=== PATIENT | male | born 1965 ===

== ENCOUNTER 2016-09-18 07:29 | Emergency (ER) | payer OTHER ==
[2016-09-18 07:35] VITALS: BMI 29.9
--- NOTE | 2016-09-18 08:02 | ED PDOC ---
HPI: Back Time Seen by Provider: 09/18/16 07:33 Chief Complaint (Nursing): Back Pain Chief Complaint (Provider): Back pain History Per: Patient History/Exam Limitations: no limitations Onset/Duration Of Symptoms: Days (1 week) Current Symptoms Are (Timing): Still Present Quality Of Discomfort: "Pain" Severity: Moderate Associated Symptoms: None Exacerbating Factor(s): Movement (sitting to standing position) Additional Complaint(s): The pt is a 51yo male, PMHx of skin cancer with surgery for lesion removal, presents to the ED for evaluation of persistent back pain for the past week. Pt reports pain is worse when he attempts to move from a sitting to standing position. 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 He denies any symptoms. Pt offers no additional medical complaints. Past Medical History Reviewed: Historical Data, Nursing Documentation, Vital Signs Vital Signs: Last Vital Signs Temp 97 F L 09/18/16 07:33 Pulse 86 09/18/16 07:33 Resp BP 141/94 H 09/18/16 07:33 Pulse Ox 97 09/18/16 07:33 - Medical History PMH: Malignancy (skin ca) - Surgical History Surgical History: No Surg Hx - Family History Family History: States: No Known Family Hx - Living Arrangements Living Arrangements: With Family - Social History Current smoker - smoking cessation education provided: No Alcohol: None Drugs: Denies - Home Medications Home Medications: Ambulatory Orders Medication Instructions Recorded Cyclobenzaprine [Cyclobenzaprine 10 mg PO TID PRN #15 tab 09/18/16 HCl] Naproxen [Naprosyn] 500 mg PO BID PRN #15 tablet 09/18/16 - Allergies Allergies/Adverse Reactions: Allergies Allergy/AdvReac Type Severity Reaction Status Date / Time No Known Allergies Allergy Verified 09/18/16 07:45 Review of Systems ROS Statement: Except As Marked, All Systems Reviewed And Found Negative Genitourinary Male: Negative for: Dysuria, Frequency, Incontinence Musculoskeletal: Positive for: Back Pain Physical Exam - Reviewed Nursing Documentation Reviewed: Yes Vital Signs Reviewed: Yes - Physical Exam Appears: Positive for: Well, Non-toxic, No Acute Distress Head Exam: Positive for: ATRAUMATIC, NORMAL INSPECTION, NORMOCEPHALIC Skin: Positive for: Normal Color, Warm Eye Exam: Positive for: Normal appearance Neck: Positive for: Normal, Supple Cardiovascular/Chest: Positive for: Regular Rate, Rhythm Respiratory: Positive for: Normal Breath Sounds. Negative for: Respiratory Distress Back: Positive for: Other (tenderness to left lumbar paraspinal region) Extremity: Positive for: Normal ROM, Other (negative for straight leg test.). Negative for: Deformity, Swelling Neurologic/Psych: Positive for: Alert, Oriented - ECG O2 Sat by Pulse Oximetry: 97 (RA) Pulse Ox Interpretation: Normal Medical Decision Making Medical Decision Making: Time: 0740 Impression: lower back pain Plan: -- CT Lumbar Spine -- Urinalysis -- Toradol 60 mg IM -- Fexeril 10 mg PO -- Reassess Time: 1113 CT AP IMPRESSION: No acute fractures. Mild multilevel chronic appearing Schmorl's node. There is small left parasagittal and central a disc herniation at the L4-L5 level that does result in compressive effects on the ventral surface of the thecal sac centrally and to the left as above. Pt given CT report and stable for d/c home. Scribe Attestation: Documented by Amie Kathleen acting as a scribe for Gale Calderon MD. Provider Attestation: All medical record entries made by the Scribe were at my direction and personally dictated by me. I have reviewed the chart and agree that the record accurately reflects my personal performance of the history, physical exam, medical decision making, and the department course for this patient. I have also personally directed, reviewed, and agree with the discharge instructions and disposition. Disposition - Clinical Impression Clinical Impression: Disc herniation - Disposition Referrals: [facility] [Outside] [facility] [Outside] Disposition: Routine/Home Disposition Time: 11:12 Condition: STABLE Prescriptions: Cyclobenzaprine [Cyclobenzaprine HCl] 10 mg PO TID PRN #15 tab PRN Reason: Pain Naproxen [Naprosyn] 500 mg PO BID PRN #15 tablet PRN Reason: Pain, Moderate (4-7) Instructions: Lumbar Disc Herniation (ED) Print Language: KYRGYZ
[2016-09-18 08:29] LABS: RBC URINE 3 /hpf (0-3); URINE BILIRUBIN NEGATIVE (NEGATIVE); URINE BLOOD NEGATIVE (NEGATIVE); URINE COLOR YELLOW (YELLOW); URINE GLUCOSE (UA) NEG (Normal); URINE KETONE NEGATIVE (NEGATIVE); URINE LEUKOCYTE ESTERASE NEG Leu/uL (Negative); URINE PROTEIN NEGATIVE (NEGATIVE); URINE UROBILINOGEN 0.2-1.0 mg/dL (0.2-1.0); WBC URINE 1 /hpf (0-5)
[2016-09-18 10:07] VITALS: BP 143/95; PULSE 71; RESP 18; TEMP 97.6
--- NOTE | 2016-09-18 10:16 | CT ---
PROCEDURE: CT lumbar spine dated 09/18/2016 HISTORY: Left-sided paraspinal tenderness COMPARISON: No prior TECHNIQUE: Contiguous helical/ transaxial computed tomography images were obtained of the lumbar spine without the use of intravenous contrast. Coronal and sagittal reformatted images were created and reviewed. Radiation dose: Total exam DLP = 1166.86 mGy-cm. This CT exam was performed using one or more of the following dose reduction techniques: Automated exposure control, adjustment of the mA and/or kV according to patient size, and/or use of iterative reconstruction technique. FINDINGS: VERTEBRAE: No evidence of acute compression fractures nor retropulsed fragments. Multilevel chronic appearing Schmorl's nodes with the minor by concave endplate deformities. DISCS/SPINAL CANAL/NEURAL FORAMINA: As mentioned above, there are multilevel chronic appearing Schmorl's nodes. . Small asymmetric left-sided disc herniation L4-L5 level which does result in mild flattening of the ventral surface of the thecal sac more localized compression along the left lateral ventral surface. There may be a small also be mild posterior displacement of the nearly exiting intrathecal L5 nerve root. Facet joints slightly hypertrophic at this level. Remaining levels exhibit mild disc space narrowing with small broad-based disc bulging changes that results in some minimal flattening of the ventral surface of the thecal sac. Overall central canal appears adequate. Facet joints are slightly overgrown. Exit foramina are also adequate. Pronounced at the L4-5 level centrally and to the left. The facet joints also slightly overgrown. The overall central canal PARASPINAL SOFT TISSUES: Unremarkable. OTHER FINDINGS: Eight incidental note made of 16 mm x 13 mm left renal cyst Scattered colonic diverticula however no radiographic evidence of acute diverticulitis. IMPRESSION: No acute fractures. Mild multilevel chronic appearing Schmorl's node. There is small left parasagittal and central a disc herniation at the L4-L5 level that does result in compressive effects on the ventral surface of the thecal sac centrally and to the left as above. . See above discussion for additional findings and details.
[2016-09-18 11:14] VITALS: O2SAT 97
== END 2016-09-18 11:23 | disposition home or self-care (01) ==
LOC: H.ER 07:29
DX: M51.26 Other intervertebral disc displacement, lumbar region (principal)